=== PATIENT | female | born 1940 | race Caucasian/White ===

== ENCOUNTER 2016-09-14 07:52 | Outpatient (CLI) | payer MEDICARE, BC ==
[2016-09-14 08:36] LABS: ALT (SGPT) 15 U/L (8-55); AST (SGOT) 20 U/L (5-34); Albumin 3.6 g/dL (3.4-4.8); Alkaline Phosphatase 81 U/L (40-150); Anion Gap 11 mmol/L (10-20); BUN (Urea Nitrogen) 26 mg/dL (9.8-20.1); Bilirubin, Direct 0.2 mg/dL (0.1-0.3); Bilirubin, Total 0.4 mg/dL (0.2-1.2); Calc. Creatinine Clearance 0 mL/min (70-130); Calcium 9.5 mg/dL (7.8-10.44); Carbon Dioxide 23 mmol/L (23-31); Chloride 111 mmol/L (98-107); Cholesterol 161 mg/dl (< 200 Desired); Estimated GFR-MDRD 39; Glucose 102 mg/dL (83-110); HDL Cholesterol 54 mg/dL (>60 Neg Risk); LDL Cholesterol, Calculated 86 mg/dL; Potassium 4.7 mmol/L (3.5-5.1); Protein, Total 7.1 g/dL (6.0-8.3); Sodium 140 mmol/L (136-145); Triglycerides 107 mg/dL (Less than 150)
== END 2016-09-14 07:53 ==
LOC: MADLABBHPM 07:52
PROVIDERS: ATTEND Family Medicine
DX: E78.5 Hyperlipidemia, unspecified (principal); N18.3 Chronic kidney disease, stage 3 (moderate)
CPT/HCPCS: 36415; 80048; 80061; 80076

== ENCOUNTER 2016-12-13 07:58 | Outpatient (CLI) | payer MEDICARE, BC ==
[2016-12-13 09:10] LABS: ALT (SGPT) 20 U/L (8-55); AST (SGOT) 24 U/L (5-34); Albumin 3.7 g/dL (3.4-4.8); Alkaline Phosphatase 92 U/L (40-150); Anion Gap 11 mmol/L (10-20); BUN (Urea Nitrogen) 26 mg/dL (9.8-20.1); Bilirubin, Direct 0.2 mg/dL (0.1-0.3); Bilirubin, Total 0.4 mg/dL (0.2-1.2); Calc. Creatinine Clearance 0 mL/min (70-130); Calcium 9.5 mg/dL (7.8-10.44); Carbon Dioxide 24 mmol/L (23-31); Cardiac Risk 3.9 (Less than 4.5); Chloride 110 mmol/L (98-107); Cholesterol 197 mg/dl (< 200 Desired); Estimated GFR-MDRD 38; Glucose 95 mg/dL (83-110); HDL Cholesterol 50 mg/dL (>60 Neg Risk); LDL Cholesterol, Calculated 117 mg/dL; Potassium 4.8 mmol/L (3.5-5.1); Protein, Total 7.3 g/dL (6.0-8.3); Sodium 140 mmol/L (136-145); Triglycerides 150 mg/dL (Less than 150)
== END 2016-12-13 07:59 | disposition home or self-care (01) ==
LOC: MADLAB 07:58
PROVIDERS: ATTEND Family Medicine
DX: N18.3 Chronic kidney disease, stage 3 (moderate) (principal); E78.5 Hyperlipidemia, unspecified
CPT/HCPCS: 36415; 80048; 80061; 80076

== ENCOUNTER 2017-04-10 08:07 | Outpatient (CLI) | payer MEDICARE, BC ==
[2017-04-10 09:22] LABS: Anion Gap 17 mmol/L (10-20); BUN (Urea Nitrogen) 22 mg/dL (9.8-20.1); Calc. Creatinine Clearance 0 mL/min (70-130); Calcium 9.1 mg/dL (7.8-10.44); Carbon Dioxide 18 mmol/L (23-31); Chloride 108 mmol/L (98-107); Estimated GFR-MDRD 44; Glucose 96 mg/dL (83-110); Phosphorus 2.5 mg/dL (2.3-4.7); Potassium 4.3 mmol/L (3.5-5.1); Sodium 139 mmol/L (136-145)
--- NOTE | 2017-04-10 11:04 | ULT ---
RENAL SONOGRAM: HISTORY: Chronic renal disease. FINDINGS: The right kidney is 8.6 cm in length and the left is 8.5 cm. There is thinning of the cortex of each kidney. No evidence of mass, stone, or hydronephrosis. The urinary bladder is unremarkable. The p atient was unable to void for post-void measurements. IMPRESSION: Symmetric renal atrophy. No evidence of urinary tract obstruction. POS: [facility]
[2017-04-10 17:58] LABS: Creatinine, Urine 36.59 mg/dL (47-110); Protein, Urine Random Quant Less than 10 mg/dL
[2017-04-12 08:21] LABS: Antinuclear AB Negative (Negative)
== END 2017-04-10 08:08 | disposition home or self-care (01) ==
LOC: MADLABBHPM 08:07
PROVIDERS: ATTEND Internal Medicine Nephrology
DX: I12.9 Hypertensive chronic kidney disease with stage 1 through stage 4 chronic kidney disease, or unspecified chronic kidney disease (principal); N18.3 Chronic kidney disease, stage 3 (moderate); M62.58 Muscle wasting and atrophy, not elsewhere classified, other site
CPT/HCPCS: 36415; 76770; 80048; 82306; 82570; 83970; 84100; 84156; 85014; 85018; 86038

== ENCOUNTER 2019-11-25 16:09 | Emergency (ER) | payer MEDICARE, BC ==
[2019-11-25 16:57] LABS: #Basophils 0.1 thou/uL (0.0-0.2); #Eosinphils 0.1 thou/uL (0.0-0.7); #Lymphocytes 2.1 thou/uL (1.20-3.40); #Monocytes 1.1 thou/uL (0.11-0.59); #Neutrophils 6.2 thou/uL (1.40-6.50); %Basophils 0.8 % (0.0-1.0); %Lymphocytes 22.1 % (21.0-51.0); %Monocytes 11.4 % (0.0-10.0); %Neutrophils 64.7 % (42.0-75.0); Hemoglobin 13.6 g/dL (12.0-16.0); Mean Corpuscular Hemoglobin 30.7 pg (27.0-31.0); Mean Corpuscular Volume 93.1 fL (78.0-98.0); Mean Platelet Volume 5.7 fL (7.4-10.4); Platelet Count 164 thou/uL (130-400); RBC Distribution Width 11.7 % (11.5-14.5); Red Blood Cell (RBC) Count 4.42 mill/uL (4.20-5.40); White Blood Cell (WBC) Count 9.5 thou/uL (4.8-10.8)
[2019-11-25 17:09] LABS: ALT (SGPT) 35 U/L (8-55); AST (SGOT) 33 U/L (5-34); Albumin 3.5 g/dL (3.4-4.8); Alkaline Phosphatase 141 U/L (40-110); Anion Gap 15 mmol/L (10-20); BUN (Urea Nitrogen) 18 mg/dL (9.8-20.1); Bilirubin, Total 0.4 mg/dL (0.2-1.2); CK (CPK) 26 U/L (29-168); CRP (Inflammatory) 4.82 mg/dL (= or < 0.5); Calc. Creatinine Clearance 0 mL/min (70-130); Calcium 8.8 mg/dL (7.8-10.44); Carbon Dioxide 20 mmol/L (23-31); Chloride 104 mmol/L (98-107); Estimated GFR-MDRD 47; Glucose 142 mg/dL (83-110); Potassium 4.1 mmol/L (3.5-5.1); Protein, Total 7.5 g/dL (6.0-8.3); Sodium 135 mmol/L (136-145)
--- NOTE | 2019-11-25 17:09 | RAD ---
EXAM: Single view of the chest HISTORY: Covid positive with pleuritic chest pain COMPARISON: 07/09/2012 FINDINGS: Single view of the chest shows a normal sized cardiomediastinal silhouette. There is eleva tion the right hemidiaphragm. There may be subtle multifocal mixed infiltrates and alignment. No acute osseous abnormality. IMPRESSION: Subtle multifocal infiltrates
[2019-11-25] MEDS ORDERED: Dexamethasone 10 MG/ML VIAL ONE (17:33)
[2019-11-25] MEDS ORDERED: Aspirin Chewable 81 MG TAB ONE (17:33)
[2019-11-25] MEDS ORDERED: Sodium Chloride 0.9% 100 ML ONE (17:33)
[2019-11-25] MEDS ORDERED: cefTRIAXone\\ROCEPHIN 1 GM VIAL ONE (17:33)
[2019-11-25] MEDS ORDERED: Enoxaparin Sodium 100 MG/ML SYRINGE ONE (17:49)
== END 2019-11-25 18:08 | disposition short-term general hospital (02) ==
LOC: MADERS 16:09
DX: U07.1 COVID-19 (principal); R07.9 Chest pain, unspecified; E78.00 Pure hypercholesterolemia, unspecified; Z86.718 Personal history of other venous thrombosis and embolism; Z79.899 Other long term (current) drug therapy
CPT/HCPCS: 71045; 80053; 82550; 82728; 83605; 84484; 85025; 85379; 86140; 87040; 93005; 96365; 96372; 96375; J0696; J1100; J1650; J3490

== ENCOUNTER 2020-02-02 11:22 | Outpatient (CLI) | payer MEDICARE, BC ==
[2020-02-02 11:56] LABS: Hemoglobin 14.3 g/dL (12.0-16.0)
[2020-02-02 12:00] LABS: Anion Gap 14 mmol/L (10-20); BUN (Urea Nitrogen) 25 mg/dL (9.8-20.1); Calc. Creatinine Clearance 0 mL/min (70-130); Calcium 9.2 mg/dL (7.8-10.44); Carbon Dioxide 22 mmol/L (23-31); Chloride 108 mmol/L (98-107); Estimated GFR-MDRD 50; Glucose 100 mg/dL (83-110); Sodium 140 mmol/L (136-145)
[2020-02-02 17:37] LABS: Protein, Urine Random Quant Less than 10 mg/dL (1-14)
== END 2020-02-02 11:23 | disposition home or self-care (01) ==
LOC: MADLAB 11:22
PROVIDERS: ATTEND Internal Medicine Nephrology
DX: D63.1 Anemia in chronic kidney disease (principal); N18.30 Chronic kidney disease, stage 3 unspecified; R80.9 Proteinuria, unspecified
CPT/HCPCS: 36415; 80048; 82570; 83970; 84156; 85014; 85018

== ENCOUNTER 2020-06-07 07:28 | Outpatient (CLI) | payer MEDICARE, BC ==
[2020-06-07 08:22] LABS: Anion Gap 13 mmol/L (10-20); BUN (Urea Nitrogen) 30 mg/dL (9.8-20.1); Calc. Creatinine Clearance 0 mL/min (70-130); Calcium 9.2 mg/dL (7.8-10.44); Carbon Dioxide 22 mmol/L (23-31); Chloride 109 mmol/L (98-107); Glucose 99 mg/dL (83-110); Potassium 4.6 mmol/L (3.5-5.1); Sodium 139 mmol/L (136-145)
== END 2020-06-07 07:29 | disposition home or self-care (01) ==
LOC: MADLAB 07:28
PROVIDERS: ATTEND Internal Medicine Nephrology
DX: D50.9 Iron deficiency anemia, unspecified (principal); I12.9 Hypertensive chronic kidney disease with stage 1 through stage 4 chronic kidney disease, or unspecified chronic kidney disease; N18.30 Chronic kidney disease, stage 3 unspecified; N25.81 Secondary hyperparathyroidism of renal origin; E55.9 Vitamin D deficiency, unspecified
CPT/HCPCS: 36415; 80048; 83970

== ENCOUNTER 2021-10-05 07:00 | Outpatient (CLI) | payer MEDICARE, BC ==
[2021-10-05 07:20] LABS: Hemoglobin 14.6 g/dL (12.0-16.0)
[2021-10-05 07:37] LABS: ALT (SGPT) 21 U/L (8-55); AST (SGOT) 21 U/L (5-34); Albumin 3.9 g/dL (3.4-4.8); Alkaline Phosphatase 102 U/L (40-110); Anion Gap 16 mmol/L (10-20); BUN (Urea Nitrogen) 23 mg/dL (9.8-20.1); Bilirubin, Total 0.6 mg/dL (0.2-1.2); Calc. Creatinine Clearance 0 mL/min (70-130); Calcium 9.2 mg/dL (7.8-10.44); Carbon Dioxide 18 mmol/L (23-31); Cardiac Risk 2.9 (Less than 4.5); Chloride 111 mmol/L (98-107); Cholesterol 173 mg/dl (< 200 Desired); Estimated GFR 49; Globulin 3.2 g/dL (2.4-3.5); Glucose 113 mg/dL (83-110); HDL Cholesterol 59 mg/dL (>60 Neg Risk); LDL Cholesterol, Calculated 95 mg/dL; Potassium 4.5 mmol/L (3.5-5.1); Protein, Total 7.1 g/dL (5.8-8.1); Sodium 140 mmol/L (136-145); Triglycerides 93 mg/dL (Less than 150)
[2021-10-05 16:45] LABS: Creatinine, Urine 46.59 mg/dL (47-110); Protein, Urine Random Quant Less than 10 mg/dL (1-14)
== END 2021-10-05 07:01 | disposition home or self-care (01) ==
LOC: MADLAB 07:00
PROVIDERS: ATTEND Family Medicine
DX: N18.30 Chronic kidney disease, stage 3 unspecified (principal); D63.1 Anemia in chronic kidney disease; R80.9 Proteinuria, unspecified; E78.5 Hyperlipidemia, unspecified
CPT/HCPCS: 36415; 80053; 80061; 82570; 83970; 84156; 85014; 85018

== ENCOUNTER 2024-10-29 07:56 | Outpatient (CLI) | payer MEDICARE, BC ==
[2024-10-29 09:08] LABS: #Basophils 0.1 thou/uL (0.0-0.2); #Eosinophils 0.4 thou/uL (0.0-0.7); #Lymphocytes 2.4 thou/uL (1.20-3.40); #Monocytes 0.7 thou/uL (0.11-0.59); #Neutrophils 3.8 thou/uL (1.40-6.50); %Basophils 1.8 % (0.0-1.0); %Eosinophils 4.8 % (0.0-10.0); %Lymphocytes 33.0 % (21.0-51.0); %Monocytes 8.9 % (0.0-10.0); %Neutrophils 51.6 % (42.0-75.0); Hematocrit 42.1 % (36.0-47.0); Hemoglobin 13.8 g/dL (12.0-16.0); Mean Corpuscular Hemoglobin 31.9 pg (27.0-31.0); Mean Corpuscular Volume 97.3 fl (78.0-98.0); Platelet Count 267 10x3/uL (130-400); Red Blood Cell (RBC) Count 4.33 mill/uL (4.20-5.40); White Blood Cell (WBC) Count 7.3 10x3/uL (4.8-10.8)
[2024-10-29 09:12] LABS: Glucose, Urine (Dipstick) Negative (Negative); Leukocyte Moderate (Negative); Protein, Urine (Dipstick) Negative (Neg-Trace); Specific Gravity, Urine 1.015 (1.005-1.030)
[2024-10-29 09:14] LABS: ALT (SGPT) 13 U/L (Less than 34); AST (SGOT) 41 U/L (11-34); Albumin 3.8 g/dL (3.1-4.5); Alkaline Phosphatase 70 U/L (40-110); Anion Gap 16 mmol/L (10-20); BUN (Urea Nitrogen) 25 mg/dL (9.8-20.1); Bilirubin, Total 0.5 mg/dL (0.3-1.2); Calc. Creatinine Clearance 0 mL/min (70-130); Calcium 9.3 mg/dL (7.8-10.44); Carbon Dioxide 20 mmol/L (23-31); Cardiac Risk 2.3 (Less than 4.5); Chloride 109 mmol/L (98-107); Cholesterol 161 mg/dl (< 200 Desired); Globulin 3.1 g/dL (2.4-3.5); Glucose 106 mg/dL (83-110); HDL Cholesterol 69 mg/dL (>60 Neg Risk); LDL Cholesterol, Calculated 71 mg/dL; Magnesium 2.0 mg/dL (1.6-2.6); Potassium 4.1 mmol/L (3.5-5.1); Sodium 141 mmol/L (136-145); Triglycerides 106 mg/dL (Less than 150)
[2024-10-29 16:35] LABS: Free T4 (Free Thyroxine) 0.97 ng/dL (0.70-1.48)
[2024-10-29 17:18] LABS: Vitamin D, 25 Hydroxy 44.1 ng/ml (> 30.0)
[2024-10-29 18:42] LABS: Protein, Urine Random Quant 11.0 mg/dL (1-14)
== END 2024-10-29 07:57 | disposition home or self-care (01) ==
LOC: MADLAB 07:56
PROVIDERS: ATTEND Family Medicine
DX: I12.9 Hypertensive chronic kidney disease with stage 1 through stage 4 chronic kidney disease, or unspecified chronic kidney disease (principal); N18.9 Chronic kidney disease, unspecified; R80.9 Proteinuria, unspecified; N25.81 Secondary hyperparathyroidism of renal origin; E55.9 Vitamin D deficiency, unspecified; E78.5 Hyperlipidemia, unspecified; E03.9 Hypothyroidism, unspecified
CPT/HCPCS: 36415; 80053; 80061; 81003; 82043; 82306; 83735; 83970; 84100; 84156; 84439; 84443; 84481; 85025; 86376

== ENCOUNTER 2025-03-08 11:27 | Outpatient (CLI) | payer MEDICARE, BC | END 2025-03-08 11:28 | disposition home or self-care (01) | LOC: MADRAD 11:27 | PROVIDERS: ATTEND Internal Medicine Rheumatology | DX: M81.0 Age-related osteoporosis without current pathological fracture (principal); M47.814 Spondylosis without myelopathy or radiculopathy, thoracic region | CPT/HCPCS: 72072 ==